=== PATIENT | male | born 1990 | race Caucasian/White ===

== ENCOUNTER 2022-04-29 07:39 | Emergency (ER) | payer OTHER ==
[~2022-04-29] VITALS: Ht 185.4 cm; Wt 81.4 kg
[2022-04-29 07:40] VITALS: BP 130/59
[2022-04-29] MEDS ORDERED: LIDOCAINE 5% (LIDODERM) PATCH TD ONE (11:25)
[2022-04-29] MEDS ORDERED: KETOROLAC 30 MG/ML 1ML VIAL IM ONE (11:25)
[2022-04-29] MEDS ORDERED: methocarbamoL 500 MG TAB PO ONE (11:25)
[2022-04-29] MEDS ORDERED: METH-1164 PO (11:27)
[2022-04-29] MEDS ORDERED: MEDR4PAK PO (11:28)
[2022-04-29] MEDS ORDERED: KETO10TAB PO (11:29)
[2022-04-29] MEDS ORDERED: **NOTE PATIENT COMMENT** MISC XX SCH (21:00)
== END 2022-04-29 12:04 | disposition home or self-care (01) ==
LOC: M ED 07:39
DX: S76.011A Strain of muscle, fascia and tendon of right hip, initial encounter (principal); W17.89XA Other fall from one level to another, initial encounter; Y92.89 Other specified places as the place of occurrence of the external cause; Y99.0 Civilian activity done for income or pay; Z88.1 Allergy status to other antibiotic agents; Z88.2 Allergy status to sulfonamides; F17.200 Nicotine dependence, unspecified, uncomplicated
CPT/HCPCS: 73502; 96372; 99282; J1885

== ENCOUNTER 2022-11-08 10:17 | Emergency (ER) | payer OTHER ==
[~2022-11-08] VITALS: Ht 185.4 cm; Wt 82.3 kg
[~2022-11-08 10:17] MED LIST: KETO10TAB PO; MEDR4PAK PO; METH-1164 PO
[2022-11-08] MEDS ORDERED: LIDOCAINE 5% (LIDODERM) PATCH TD ONE (11:35)
[2022-11-08] MEDS ORDERED: KETOROLAC 60MG 2ML VIAL IM ONE (11:35)
[2022-11-08] MEDS ORDERED: ACETAMINOPHEN 500 MG TAB PO ONE (11:35)
[2022-11-08] MEDS ORDERED: diazePAM 5MG TABLET PO ONE (11:35)
[2022-11-08] MEDS ORDERED: LIDO5DIS41 TD (12:56)
[2022-11-08] MEDS ORDERED: VALI5TAB PO (12:56)
[2022-11-08 13:08] VITALS: BP 112/74
[2022-11-08] MEDS ORDERED: ONDA4TAB6 PO (13:14)
== END 2022-11-08 13:12 | disposition home or self-care (01) ==
LOC: M ED 10:17
DX: M54.50 Low back pain, unspecified (principal); M51.9 Unspecified thoracic, thoracolumbar and lumbosacral intervertebral disc disorder; Z88.2 Allergy status to sulfonamides
CPT/HCPCS: 96372; 99283; J1885

== ENCOUNTER 2022-12-18 23:51 | Emergency (ER) | payer OTHER ==
[~2022-12-18] VITALS: Ht 182.9 cm; Wt 86.4 kg
[~2022-12-18 23:51] MED LIST changes: +LIDO5DIS41 TD; +ONDA4TAB6 PO; +VALI5TAB PO
[2022-12-19 09:03] LABS: GC DNA AMPLIFICATION NEGATIVE (NEGATIVE)
[2022-12-19 10:13] VITALS: BP 141/69
[2022-12-19] MEDS ORDERED: CYCL5TAB PO (10:18)
[2022-12-19] MEDS ORDERED: LIDO5DIS41 TOP (10:19)
== END 2022-12-19 10:34 | disposition home or self-care (01) ==
LOC: M ED 23:51
DX: N43.3 Hydrocele, unspecified (principal); M51.37 Other intervertebral disc degeneration, lumbosacral region; F17.200 Nicotine dependence, unspecified, uncomplicated; Z88.2 Allergy status to sulfonamides; Z79.899 Other long term (current) drug therapy

== ENCOUNTER 2025-07-04 02:31 | Emergency (ER) | payer OTHER ==
[~2025-07-04] VITALS: Ht 177.8 cm; Wt 68.1 kg
[~2025-07-04 02:31] MED LIST changes: +CYCL5TAB4 PO; +LIDO1ADH93 TD; +LIDO1ADH93 TOP; -LIDO5DIS41 TD; +ONDA-282 PO; -ONDA4TAB6 PO
[2025-07-04 04:29] VITALS: BP 121/72; TEMP 97.6; O2SAT 99
== END 2025-07-04 05:40 | disposition left against medical advice (07) ==
LOC: M ED 02:31
DX: Z53.21 Procedure and treatment not carried out due to patient leaving prior to being seen by health care provider (principal)